=== PATIENT | female | born 1980 | race Two or more races ===

== ENCOUNTER 2016-09-17 18:37 | Inpatient (IN) | payer SELFPAY ==
--- NOTE | 2016-09-17 18:47 | ER Document Report ---
ED Medical Screen (RME) - General Stated Complaint: ABDOMINAL PAIN Mode of Arrival: Medic Information source: Patient Notes: Patient presents to the emergency department with nausea vomiting and abdominal pain for the past 4 hours. She was brought by EMS. Was given EMS. Denies fever or diarrhea. Patient still has her gallbladder. I have greeted and performed a rapid initial assessment of this patient. A comprehensive ED assessment and evaluation of the patient, analysis of test results and completion of the medical decision making process will be conducted by additional ED providers. TRAVEL OUTSIDE OF THE [place] IN LAST 30 DAYS: No - Related Data Allergies/Adverse Reactions: No Known Allergies Allergy (Unverified 12/06/14 18:50) Past Medical History Renal/ Medical History: Reports: Hx Ovarian Cysts GI Medical History: Reports: Hx Ulcer Psychiatric Medical History: Reports: Hx Depression Past Surgical History: Reports: Hx Abdominal Surgery - endoscopy - Immunizations Hx Diphtheria, Pertussis, Tetanus Vaccination: Yes
[2016-09-17] MEDS ORDERED: METOCLOPRAMIDE HCL INJ/PF 10 MG/2 ML SDV IV ONE (18:48)
[2016-09-17 19:46] LABS: ABSOLUTE BASOPHILS # (AUTO) 0.1 10^3/uL (0.0-0.2); ABSOLUTE MONOCYTES (AUTO) 0.8 10^3/uL (0.1-1.4); ABSOLUTE NEUT (AUTO) 16.3 10^3/uL (1.7-8.2); BASOPHILS % (AUTO) 0.3 % (0-2); HEMATOCRIT 38.1 % (36.0-47.0); HEMOGLOBIN 12.6 g/dL (12.0-15.5); HGB HCT DIFFERENCE -0.3; LYMPHOCYTES % (AUTO) 5.4 % (13-45); MEAN CORPUSCULAR HEMOGLOBIN 26.4 pg (27.0-33.4); MEAN CORPUSCULAR HGB CONC 33.1 g/dL (32.0-36.0); MEAN CORPUSCULAR VOLUME 80 fl (80-97); MONOCYTES % (AUTO) 4.7 % (3-13); RED BLOOD COUNT 4.78 10^6/uL (3.72-5.28); SEGMENTED NEUTROPHILS % (AUTO) 89.6 % (42-78); WHITE BLOOD COUNT 18.2 10^3/uL (4.0-10.5)
[2016-09-17 20:01] LABS: ALANINE AMINOTRANSFERASE 39 U/L (9-52); ALBUMIN 4.7 g/dL (3.5-5.0); ALKALINE PHOSPHATASE 85 U/L (38-126); ANION GAP 17 (5-19); ASPARTATE AMINO TRANSFERASE 25 U/L (14-36); BILIRUBIN,DIRECT 0.1 mg/dL (0.0-0.4); BILIRUBIN,TOTAL 0.6 mg/dL (0.2-1.3); BLOOD UREA NITROGEN 13 mg/dL (7-20); CALCIUM 10.3 mg/dL (8.4-10.2); CARBON DIOXIDE 18 mmol/L (22-30); CHLORIDE 106 mmol/L (98-107); CREATININE RESULT 0.62 mg/dL (0.52-1.25); GLUCOSE 122 mg/dL (75-110); LIPASE 91.5 U/L (23-300); POTASSIUM 3.9 mmol/L (3.6-5.0); TOTAL PROTEIN 7.8 g/dL (6.3-8.2)
[2016-09-17] MEDS ORDERED: ONDANSETRON HCL INJ/PF 4 MG/2 ML SDV IV ONE (20:56)
[2016-09-18 00:05] LABS: APPEARANCE,URINE SLIGHTLY-CLOUDY; BILIRUBIN,URINE NEGATIVE (NEGATIVE); GLUCOSE, URINE NEGATIVE (NEGATIVE); KETONES,URINE 80 mg/dL (NEGATIVE); LEUKOCYTE ESTERASE,URINE NEGATIVE (NEGATIVE); NITRITE,URINE NEGATIVE (NEGATIVE); PROTEIN,URINE 30 mg/dL (NEGATIVE); URINE SPECIFIC GRAVITY 1.016; UROBILINOGEN,URINE NEGATIVE mg/dL (<2.0)
[2016-09-18] MEDS ORDERED: PROMETHAZINE HCL INJ 25 MG/1 ML VIAL IM ONE (00:46)
[2016-09-18] MEDS ORDERED: MORPHINE SULFATE 10 MG/ML INJ IV ONE (00:46)
[2016-09-18] MEDS ORDERED: NORMAL SALINE 1000 ML 1,000 ML IV ONE ×2 (00:47→02:51)
--- NOTE | 2016-09-18 00:52 | ER Document Report ---
ED General - General Chief Complaint: Abdominal Pain Stated Complaint: ABDOMINAL PAIN Mode of Arrival: Medic Information source: Patient Notes: This is a 36-year-old female with a history of peptic ulcer disease who presents with a one-day history of diffuse abdominal pain and cramping, nausea vomiting and diarrhea. She states that her symptoms began about 10 this morning after eating a bowl of cereal. She felt significant diffuse abdominal cramps. She hasn't had diarrhea followed by nausea and vomiting. She has not been able to tolerate PO since then. She arrived via EMS and states that she feels better after Reglan and Zofran. She denies sick contacts and denies recent travel. TRAVEL OUTSIDE OF THE [place] IN LAST 30 DAYS: No - Related Data Allergies/Adverse Reactions: No Known Allergies Allergy (Unverified 12/06/14 18:50) Past Medical History - General Information source: Patient - Social History Smoking Status: Current Every Day Smoker Chew tobacco use (# tins/day): No Frequency of alcohol use: None Drug Abuse: None Family History: Reviewed & Not Pertinent Patient has suicidal ideation: No Patient has homicidal ideation: No - Past Medical History Cardiac Medical History: Reports: None Pulmonary Medical History: Reports: None Renal/ Medical History: Reports: Hx Ovarian Cysts. Denies: Hx Peritoneal Dialysis GI Medical History: Reports: Hx Ulcer Psychiatric Medical History: Reports: Hx Depression Past Surgical History: Reports: Hx Abdominal Surgery - endoscopy - Immunizations Hx Diphtheria, Pertussis, Tetanus Vaccination: Yes Review of Systems - Review of Systems Notes: REVIEW OF SYSTEMS: CONSTITUTIONAL : Denies fever, chills, or sweats. Denies recent illness. EENT: Denies eye, ear, throat, or mouth pain or symptoms. Denies nasal or sinus congestion. CARDIOVASCULAR: Denies chest pain. RESPIRATORY: Denies cough, cold, or chest congestion. Denies shortness of breath, difficulty breathing, or wheezing. GASTROINTESTINAL: As per history of present illness GENITOURINARY: Denies difficulty urinating, painful urination, burning, frequency, or blood in urine. FEMALE GENITOURINARY: Denies vaginal bleeding, abnormal or irregular periods. LMP: 09/05/16 MUSCULOSKELETAL: Denies neck or back pain or joint pain or swelling. SKIN: Denies rash or skin lesions. HEMATOLOGIC : Denies easy bruising or bleeding. LYMPHATIC: Denies swollen, enlarged glands. NEUROLOGICAL: Denies altered mental status or loss of consciousness. Denies headache. PSYCHIATRIC: Denies anxiety or stress or depression. ALL OTHER SYSTEMS REVIEWED AND NEGATIVE. Physical Exam - Vital signs Vitals: Temp 98.3 F 09/18/16 02:28 - Notes Notes: PHYSICAL EXAMINATION: GENERAL: Well-appearing, well-nourished and in no acute distress. Pleasant and conversant. HEAD: Atraumatic, normocephalic. EYES: Pupils equal round and reactive to light, extraocular movements intact, sclera anicteric, conjunctiva are normal. ENT: nares patent, oropharynx clear without exudates. Moist mucous membranes. NECK: Normal range of motion, supple without lymphadenopathy LUNGS: Breath sounds clear to auscultation bilaterally and equal. No wheezes rales or rhonchi. HEART: Regular rate and rhythm without murmurs ABDOMEN: Soft, diffuse mild tenderness to palpation, normoactive bowel sounds. No guarding, no rebound. No masses appreciated. EXTREMITIES: Normal range of motion, no pitting NEUROLOGICAL: Cranial nerves grossly intact. Normal speech. No gross focal motor or sensory deficits appreciated. PSYCH: Normal mood, normal affect. SKIN: Warm, Dry, normal turgor, no rashes or lesions noted. Course - Re-evaluation Re-evalutation: 09/18/16 02:39 Discussed with surgery on-call who will admit the patient for acute appendicitis - Vital Signs Vital signs: Temp Pulse Resp BP Pulse Ox 98.1 F 78 14 97/57 L 97 09/18/16 06:14 09/18/16 06:44 09/18/16 06:44 09/18/16 06:44 09/18/16 06:44 - Laboratory Result Diagrams: 09/17/16 19:25 09/17/16 19:25 Laboratory results interpreted by me: 09/17/16 09/17/16 09/17/16 19:25 19:25 19:28 WBC 18.2 H MCH 26.4 L Seg Neutrophils % 89.6 H Lymphocytes % 5.4 L Absolute Neutrophils 16.3 H Carbon Dioxide 18 L Glucose 122 H Calcium 10.3 H Urine Protein 30 H Urine Ketones 80 H - Diagnostic Test Radiology reviewed: Reports reviewed - early acute appendicitis Discharge - Discharge Clinical Impression: Acute appendicitis Qualifiers: Acute appendicitis type: unspecified acute appendicitis type Qualified Code(s) : K35.80 - Unspecified acute appendicitis Disposition: ADMITTED INPATIENT Admitting Provider: Surgicalist - Dr Bueno Unit Admitted: OR
[2016-09-18] MEDS ORDERED: PROMETHAZINE HCL INJ 25 MG/1 ML VIAL ONE (01:09)
[2016-09-18] MEDS ORDERED: PIPERACILLIN/TAZOBACTAM 3.375 GM VIAL IV ONE (02:48)
[2016-09-18] MEDS ORDERED: LORAZEPAM INJ 2 MG/1 ML VIAL IV ONE (03:46)
[2016-09-18] MEDS ORDERED: FENTANYL CITRATE INJ/PF 250 MCG/5 ML AMPULE ONE (04:33)
[2016-09-18] MEDS ORDERED: MIDAZOLAM 2 MG/2 ML INJ ONE (04:34)
[2016-09-18] MEDS ORDERED: EPHEDRINE SULFATE INJ 50 MG/1 ML AMPULE ONE (04:34)
[2016-09-18] MEDS ORDERED: ACETAMINOPHEN 100 ML IV ONE (04:34)
[2016-09-18] MEDS ORDERED: PROPOFOL INJ 200 MG/20 ML VIAL IV ONE (04:34)
[2016-09-18] MEDS ORDERED: DEXMEDETOMIDINE INJ 80 MCG/20 ML VIAL IV ONE (04:34)
[2016-09-18] MEDS ORDERED: LIDOCAINE 1% INJ-PF (10 MG/ML) 30 ML SDV ONE (04:48)
[2016-09-18] MEDS ORDERED: BUPIVACAINE HCL 0.25% /EPINEPHRINE INJ/PF 30 ML SDV ONE (04:49)
[2016-09-18] MEDS ORDERED: BUPIVACAINE HCL 0.5%-EPI 1:200000 INJ/PF 30 ML VIAL ONE (05:40)
[2016-09-18] MEDS ORDERED: PROMETHAZINE HCL INJ 25 MG/1 ML VIAL IV PRN ×2 (05:52)
[2016-09-18] MEDS ORDERED: DIPHENHYDRAMINE HCL 50 MG/ML VIAL IV PRN (05:52)
[2016-09-18] MEDS ORDERED: ONDANSETRON HCL INJ/PF 4 MG/2 ML SDV IV PRN (05:52)
[2016-09-18] MEDS ORDERED: MORPHINE SULFATE 10 MG/ML INJ IV PRN (05:52)
[2016-09-18] MEDS ORDERED: MEPERIDINE HCL/PF INJ 25 MG/1 ML DISP.SYRIN IV PRN (05:52)
[2016-09-18] MEDS ORDERED: FENTANYL CITRATE INJ/PF 100 MCG/2 ML AMPUL IV PRN ×3 (05:52)
[2016-09-18] MEDS: FENTANYL CITRATE INJ/PF 100 MCG/2 ML AMPUL ONE ×2 (06:26→06:31)
[2016-09-18] MEDS ORDERED: MORPHINE SULFATE 10 MG/ML INJ ONE (06:46)
--- NOTE | 2016-09-18 07:53 | OPERATIVE REPORT E ---
Operative Report NAME: DOLORES WILSON : 1980 AGE: 36Y DATE OF SURGERY: 09/18/2016 ROOM: ED13W PREOPERATIVE DIAGNOSIS: Acute appendicitis. POSTOPERATIVE DIAGNOSIS: Acute appendicitis. OPERATION: Laparoscopic appendectomy. SURGEON: SALUD GRANT M.D. MEDICARE COORDINATOR: None. ESTIMATED BLOOD LOSS: Negligible. COMPLICATIONS: None. ANESTHESIA: General plus 10 mL of 0.5% Marcaine with epinephrine. INDICATIONS AND FINDINGS: A 36-year-old female with a history of right upper quadrant pain, intense nausea and vomiting, with acute appendicitis found on CT scan. Her white count was elevated to 18,000 and the decision was made to take the patient to surgery today to undergo an emergent laparoscopic appendectomy, possible open procedure. The procedure risks, benefits, complications were explained to the patient. She understood all of the above and she decided to proceed. DESCRIPTION OF PROCEDURE: The patient was brought to the operating room. The patient was placed in the supine position. General anesthesia induced by endotracheal intubation. Abdomen was prepped and draped in the usual fashion. An incision was made just above the umbilicus. A 5 mm scope with Optiview adaptor and cannula were inserted through the umbilicus into the peritoneal cavity. The pneumoperitoneum was then obtained without difficulty and under direct visualization, a 5 mm port was inserted in the right upper quadrant of the abdomen. The 5 mm port through the umbilicus was removed and replaced by a 12 mm port. After this, 12 mm port was placed in the in the left lower quadrant of the abdomen. The patient was then placed in the Trendelenburg position with the right side exposed. The appendix was found to be in the right upper quadrant anterior, it was elevated and stretched. The mesoappendix was divided with LigaSure and stapled the base with endo-LAWRENCE. The appendix was extracted from the peritoneal cavity within an Endobag. The pneumoperitoneum was then re-established. The staple line was examined and found to be intact. Under direct visualization [id number] #0-Vicryl suture was placed to close the umbilical defect using fascial closure device. The sutures were left untied. All instruments were removed. The CO2 pneumoperitoneum was released. The ports were removed as well. The fascial defect at the umbilicus was closed with the previously placed [id number] #0-Vicryl suture. All skin incisions were closed with 4-0 Monocryl running subcuticular suture with Dermabond applied. The patient was then extubated and transferred to recovery room in satisfactory condition. PROCEDURE: @ DICTATING PHYSICIAN: SALUD GRANT M.D. [id number] PHY#: [id number] ID: [id number] JOB#: [id number] ACCT: [id number] cc:SALUD GRANT M.D. > [facility]
[2016-09-18] MEDS ORDERED: HYDROCODONE/ACETAMINOPHEN 5-325 MG TABLET PO PRN (08:12)
[2016-09-18] MEDS: MORPHINE SULFATE 10 MG/ML INJ IV PRN ×6 (09:33→20:44)
[2016-09-18] MEDS ORDERED: LIDOCAINE 2% INJ-PF (20 MG/ML) 10 ML AMPUL ONE (09:44)
[2016-09-18] MEDS ORDERED: ROCURONIUM BROMIDE INJ 50 MG/5 ML VIAL IV ONE (09:44)
[2016-09-18] MEDS ORDERED: METOCLOPRAMIDE HCL INJ/PF 10 MG/2 ML SDV ONE (09:44)
[2016-09-18] MEDS ORDERED: GLYCOPYRROLATE INJ 0.4 MG/2 ML VIAL ONE (09:44)
[2016-09-18] MEDS ORDERED: ONDANSETRON HCL INJ/PF 4 MG/2 ML SDV ONE (09:44)
[2016-09-18] MEDS ORDERED: DEXAMETHASONE SOD PHOSPHATE INJ 4 MG/1 ML VIAL ONE (09:44)
[2016-09-18] MEDS ORDERED: KETOROLAC TROMETHAMINE 60 MG/2 ML SDV ONE (09:44)
[2016-09-18] MEDS ORDERED: NEOSTIGMINE METHYLSULFATE 10 MG/10 ML VIAL ONE (09:44)
[2016-09-18] MEDS ORDERED: SUCCINYLCHOLINE CHLORIDE INJ 200 MG/10 ML VIAL ONE (09:44)
[2016-09-18] MEDS: PIPERACILLIN SODIUM/TAZOBACTAM 3.375 GM in NORMAL SALINE 100 ML IV SCH ×3 (10:33→20:44)
[2016-09-18] MEDS: NORMAL SALINE 1000 ML 1,000 ML IV PRN ×2 (10:33→20:44)
--- NOTE | 2016-09-18 13:22 | HISTORY AND PHYSICAL E ---
History and Physical NAME: DOLORES WILSON : 1980 AGE: 36Y ADMITTED: 09/18/2016 ROOM: 421 CHIEF COMPLAINT: Right lower quadrant pain. HISTORY: This is a healthy 36-year-old white female with a history of right lower quadrant pain, intense nausea, seen in the emergency room tonight and a CAT scan of the abdomen was done revealing the presence of acute appendicitis. The patient denies hematemesis, fever, chills, or hematochezia, or change in bowel habits. PAST MEDICAL HISTORY: Significant for: 1. Depression. 2. 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 ALLERGIES: None. MEDICATIONS: Fluoxetine. SOCIAL HISTORY: The patient denies abuse of tobacco and drugs, admits to occasional use of alcohol. FAMILY HISTORY: Significant for diabetes and hypertension. REVIEW OF SYSTEMS: Twelve-point review of systems significant for history of gastric ulcers and depression. REVIEW OF LABORATORIES: Urinalysis is negative except for the presence of ketone. Lytes, BUN and creatinine normal. LFT's normal. White blood cell count 18, H and H 12 and 38, platelet count 296. Lipase is normal. Beta HCG the serum is negative. CT scan abdomen and pelvis significant for early acute appendicitis without evidence of perforation. PHYSICAL EXAMINATION: VITAL SIGNS: Stable. Patient afebrile. Temperature 98.3. Remaining vital signs within normal limits. HEENT: Second through twelve cranial nerves are normal. NECK: Supple without masses. CHEST: Symmetric bilaterally. LUNGS: Clear to auscultation bilaterally. HEART: Regular rhythm and rate. ABDOMEN: Flat, soft, nondistended. Tender in the right lower quadrant. EXTREMITIES: Upper and lower extremities are equal and symmetric bilaterally without deficit. NEUROLOGICAL: Equal and symmetric bilaterally without deficit. SKIN: Warm, dry, intact without lesions. ASSESSMENT: 1. Right lower quadrant pain. 2. Leukocytosis. 3. CT scan is significant for acute appendicitis. PLAN: 1. Aggressive IV hydration 2 L normal saline followed by normal saline 150 an hour. 2. Administration of IV antibiotics, Zosyn 3.375 g IV piggyback preop. 3. Patient scheduled to undergo laparoscopic appendectomy possibly open. Procedure benefits and complications explained to the patient. She understands all of them and decides to proceed. 4. Keep the patient n.p.o. DICTATING PHYSICIAN: SALUD GRANT M.D. [id number] PHY#: [id number] ID: [id number] JOB#: [id number] ACCT: [id number] cc:SALUD GRANT M.D. > [facility]
[2016-09-18] MEDS: ONDANSETRON HCL INJ/PF 4 MG/2 ML SDV IV PRN (19:06)
[2016-09-18] MEDS: SIMETHICONE 80 MG TAB.CHEW PO PRN (19:06)
[2016-09-18] MEDS ORDERED: ENOXAPARIN SODIUM INJ 40 MG/0.4 ML DISP.SYRIN SUBCUT SCH (20:00)
[2016-09-19] MEDS: MORPHINE SULFATE 10 MG/ML INJ IV PRN ×3 (00:09→08:15)
[2016-09-19] MEDS: SIMETHICONE 80 MG TAB.CHEW PO PRN ×3 (01:30→16:17)
[2016-09-19] MEDS: ONDANSETRON HCL INJ/PF 4 MG/2 ML SDV IV PRN (01:31)
[2016-09-19] MEDS: PIPERACILLIN SODIUM/TAZOBACTAM 3.375 GM in NORMAL SALINE 100 ML IV SCH ×2 (03:27→08:14)
[2016-09-19 07:17] LABS: HEMATOCRIT 30.2 % (36.0-47.0); HGB HCT DIFFERENCE -0.2; MEAN CORPUSCULAR HEMOGLOBIN 26.7 pg (27.0-33.4); MEAN CORPUSCULAR HGB CONC 32.9 g/dL (32.0-36.0); MEAN CORPUSCULAR VOLUME 81 fl (80-97); RED BLOOD COUNT 3.72 10^6/uL (3.72-5.28); RED CELL DISTRIBUTION WIDTH 14.5 % (11.5-14.0); WHITE BLOOD COUNT 10.2 10^3/uL (4.0-10.5)
[2016-09-19 07:39] LABS: ANION GAP 10 (5-19); BLOOD UREA NITROGEN 10 mg/dL (7-20); CALCIUM 8.5 mg/dL (8.4-10.2); CARBON DIOXIDE 21 mmol/L (22-30); CHLORIDE 111 mmol/L (98-107); CREATININE RESULT 0.59 mg/dL (0.52-1.25); GLUCOSE 92 mg/dL (75-110); POTASSIUM 3.6 mmol/L (3.6-5.0); SODIUM 141.5 mmol/L (137-145)
[2016-09-19] MEDS ORDERED: TRAMADOL HCL 50 MG TABLET PO PRN (10:19)
[2016-09-19] MEDS ORDERED: KETOROLAC TROMETHAMINE INJ/PF 30 MG/1 ML SDV IM PRN (10:19)
--- NOTE | 2016-09-19 17:48 | PROGRESS NOTE E ---
Progress Note NAME: DOLORES WILSON : 1980 AGE: 36Y DATE: 09/19/2016 ROOM: 421 SUBJECTIVE: The patient has no complaints. Denies abdominal pain, nausea, vomiting. Tolerating p.o. well. OBJECTIVE: VITAL SIGNS: Stable. Temperature 98.4. Pulse 72. Blood pressure 105/62. Respirations 16. LUNGS: Clear bilaterally. HEART: Regular. ABDOMEN: Soft. Incision is clean, dry, and intact. REVIEW OF LABORATORIES: CBC, electrolytes, BUN and creatinine all within normal limits. ASSESSMENT: 1. LAPAROSCOPIC APPENDECTOMY FOR ACUTE APPENDICITIS. 2. PATIENT HEMODYNAMICALLY STABLE, AFEBRILE. 3. PATIENT TOLERATING ORAL WELL. 4. CBC WITHIN NORMAL LIMITS WITH NORMAL WHITE BLOOD CELL COUNT. 5. PHYSICAL EXAMINATION UNREMARKABLE. PLAN: 1. Discharge home today. 2. Augmentin 875 mg p.o. b.i.d. for 5 days. 3. Tylenol for pain with Aleve p.r.n. as needed. 4. Follow up in Surgery Clinic within a week. DICTATING PHYSICIAN: SALUD GRANT M.D. [id number] PHY#: [id number] ID: [id number] JOB#: [id number] ACCT: [id number] cc: >
--- NOTE | 2016-09-19 17:53 | DISCHARGE SUMMARY E ---
Discharge Summary NAME: DOLORES WILSON : 1980 AGE: 36Y ADMITTED: 09/18/2016 DISCHARGED: 09/19/2016 FINAL DIAGNOSIS: Acute appendicitis. COMPLICATIONS: None. PROCEDURE: Laparoscopic appendectomy 09/18/2016. HOSPITAL COURSE: This is a healthy 36-year-old female who came to the Emergency Room 09/18/2016 complaining of abdominal pain in the right lower quadrant and found to have acute appendicitis. The patient was taken to surgery on the same day for laparoscopic appendectomy. The procedure was uneventful. The patient was admitted to the floor. Postoperative course was uneventful. On the day of discharge, the patient had no complaints. Vital signs were stable. Physical exam was unremarkable. Abdomen was soft. Incision was clean, dry, and intact. Her blood work showed a normal white blood cell count and normal electrolytes, BUN and creatinine. The patient was discharged to home on 09/19/2016. She was given a follow-up appointment in the Surgery Clinic within a week. She was instructed to take Tylenol 325 p.o. q.6 p.r.n. for pain and Aleve 220 mg p.o. b.i.d. p.r.n. for pain. She was instructed to take Colace or MiraLax [id number] for constipation. She was given Augmentin 875 mg p.o. b.i.d. for 5 days. Instructed to shower only. Activity as tolerated and regular diet. DICTATING PHYSICIAN: SALUD GRANT M.D. [id number] PHY#: [id number] ID: [id number] JOB#: [id number] ACCT: [id number] cc:SALUD GRANT M.D. > [facility]
[2016-09-19 17:55] VITALS: BP 108/62
== END 2016-09-19 18:14 | disposition home or self-care (01) | DRG 343 ==
LOC: ER 18:37 → EH 09-18 03:01 → UNDOADMIN 09-18 03:01 → 4W 09-18 07:15 → EH 09-18 07:15 → 4W 09-18 09:06
PROVIDERS: ADMIT Surgery; ATTEND Surgery
PROC: 0DTJ4ZZ Resection of Appendix, Percutaneous Endoscopic Approach (ICD-10-PCS; principal; 2016-09-18 05:00)
DX: K35.80 Unspecified acute appendicitis (principal); F32.9 Major depressive disorder, single episode, unspecified; F17.200 Nicotine dependence, unspecified, uncomplicated; Z87.11 Personal history of peptic ulcer disease; Z83.3 Family history of diabetes mellitus; Z82.49 Family history of ischemic heart disease and other diseases of the circulatory system
CPT/HCPCS: 36415; 74177; 80048; 80053; 81001; 83690; 840; 84703; 85025; 85027; 88304; 96361; 96374; 96375; 99285; J0131; J0330; J1100; J1650; J1885; J2250; J2270; J2405; J2543; J2704; J2765; J3010; J3490; J7030

== ENCOUNTER 2016-10-12 02:02 | Emergency (ER) | payer SELFPAY ==
[2016-10-12 06:43] LABS: ABSOLUTE BASOPHILS # (AUTO) 0.1 10^3/uL (0.0-0.2); ABSOLUTE EOSINOPHILS # (AUTO) 0.1 10^3/uL (0.0-0.6); ABSOLUTE LYMPHOCYTES (AUTO) 2.4 10^3/uL (0.5-4.7); ABSOLUTE MONOCYTES (AUTO) 0.8 10^3/uL (0.1-1.4); ABSOLUTE NEUT (AUTO) 5.3 10^3/uL (1.7-8.2); BASOPHILS % (AUTO) 0.8 % (0-2); EOSINOPHILS % (AUTO) 1.6 % (0-6); HEMATOCRIT 37.6 % (36.0-47.0); HEMOGLOBIN 12.6 g/dL (12.0-15.5); HGB HCT DIFFERENCE 0.2; LYMPHOCYTES % (AUTO) 27.4 % (13-45); MEAN CORPUSCULAR HEMOGLOBIN 26.9 pg (27.0-33.4); MEAN CORPUSCULAR HGB CONC 33.4 g/dL (32.0-36.0); MEAN CORPUSCULAR VOLUME 81 fl (80-97); MONOCYTES % (AUTO) 9.1 % (3-13); RED BLOOD COUNT 4.67 10^6/uL (3.72-5.28); SEGMENTED NEUTROPHILS % (AUTO) 61.1 % (42-78); WHITE BLOOD COUNT 8.7 10^3/uL (4.0-10.5)
[2016-10-12] MEDS ORDERED: LORAZEPAM INJ 2 MG/1 ML VIAL IV ONE (06:50)
[2016-10-12 06:53] LABS: ALANINE AMINOTRANSFERASE 40 U/L (9-52); ALBUMIN 4.6 g/dL (3.5-5.0); ALKALINE PHOSPHATASE 72 U/L (38-126); ANION GAP 13 (5-19); ASPARTATE AMINO TRANSFERASE 27 U/L (14-36); BILIRUBIN,TOTAL 0.3 mg/dL (0.2-1.3); BLOOD UREA NITROGEN 17 mg/dL (7-20); CALCIUM 9.9 mg/dL (8.4-10.2); CARBON DIOXIDE 27 mmol/L (22-30); CHLORIDE 104 mmol/L (98-107); CREATININE RESULT 0.75 mg/dL (0.52-1.25); GLUCOSE 93 mg/dL (75-110); POTASSIUM 4.1 mmol/L (3.6-5.0); SODIUM 143.6 mmol/L (137-145)
[2016-10-12] MEDS ORDERED: HYDROMORPHONE HCL INJ/PF 2 MG/ML AMPULE ONE (06:55)
--- NOTE | 2016-10-12 07:03 | ER Document Report ---
ED General - General Chief Complaint: Chest Pain Stated Complaint: CHEST PAIN,BREATHING CONCERNS Mode of Arrival: Ambulatory Information source: Patient Notes: 36-year-old female history of anxiety presents with complaints of sharp chest pain. Patient notes that she has been having this pain on and off for a few weeks, patient did have appendectomy performed on September 17 notes the symptoms preceded the surgery. Patient denies any fevers or chills denies any productive cough TRAVEL OUTSIDE OF THE [place] IN LAST 30 DAYS: No - HPI Onset: Last week Onset/Duration: Intermittent Quality of pain: Sharp Severity: Mild Pain Level: 1 Associated symptoms: Chest pain, Shortness of breath Exacerbated by: Denies Relieved by: Denies Similar symptoms previously: Yes Recently seen / treated by doctor: No - Related Data Allergies/Adverse Reactions: No Known Allergies Allergy (Unverified 12/06/14 18:50) Past Medical History - Social History Smoking Status: Never Smoker Cigarette use (# per day): No Chew tobacco use (# tins/day): No Smoking Education Provided: No Family History: Reviewed & Not Pertinent Renal/ Medical History: Reports: Hx Ovarian Cysts. Denies: Hx Peritoneal Dialysis GI Medical History: Reports: Hx Ulcer Psychiatric Medical History: Reports: Hx Depression Past Surgical History: Reports: Hx Abdominal Surgery - endoscopy - Immunizations Hx Diphtheria, Pertussis, Tetanus Vaccination: Yes Review of Systems - Review of Systems Notes: REVIEW OF SYSTEMS: CONSTITUTIONAL : Denies fever, chills, or sweats. Denies recent illness. EENT: Denies eye, ear, throat, or mouth pain or symptoms. Denies nasal or sinus congestion or discharge. Denies throat, tongue, or mouth swelling or difficulty swallowing. CARDIOVASCULAR: Admits chest pain RESPIRATORY: Admits shortness of breath GASTROINTESTINAL: Denies abdominal pain or distention. Denies nausea, vomiting , or diarrhea. Denies blood in vomitus, stools, or per rectum. Denies black, tarry stools. Denies constipation. GENITOURINARY: Denies difficulty urinating, painful urination, burning, frequency, blood in urine, or discharge. FEMALE GENITOURINARY: Denies vaginal bleeding, heavy or abnormal periods, irregular periods. Denies vaginal discharge or odor. MUSCULOSKELETAL: Denies back or neck pain or stiffness. Denies joint pain or swelling. SKIN: Denies rash, lesions or sores. HEMATOLOGIC : Denies easy bruising or bleeding. LYMPHATIC: Denies swollen, enlarged glands. NEUROLOGICAL: Denies confusion or altered mental status. Denies passing out or loss of consciousness. Denies dizziness or lightheadedness. Denies headache. Denies weakness or paralysis or loss of use of either side. Denies problems with gait or speech. Denies sensory loss, numbness, or tingling. Denies seizures. PSYCHIATRIC: Admits to anxiety ALL OTHER SYSTEMS REVIEWED AND NEGATIVE. Dictation was performed using [employer] voice recognition software PHYSICAL EXAMINATION: GENERAL: Well-appearing, well-nourished and in no acute distress. HEAD: Atraumatic, normocephalic. EYES: Pupils equal round and reactive to light, extraocular movements intact, conjunctiva are normal. ENT: Nares patent, oropharynx clear without exudates. Moist mucous membranes. NECK: Normal range of motion, supple without lymphadenopathy LUNGS: Breath sounds clear to auscultation bilaterally and equal. No wheezes rales or rhonchi. HEART: Mildly tachycardic ABDOMEN: Soft, nontender, nondistended abdomen. No guarding, no rebound. No masses appreciated. Female : deferred Musculoskeletal: Normal range of motion, no pitting or edema. No cyanosis. NEUROLOGICAL: Cranial nerves grossly intact. Normal speech, normal gait. Normal sensory, motor exams PSYCH: Normal mood, normal affect. SKIN: Warm, Dry, normal turgor, no rashes or lesions noted. Physical Exam - Vital signs Vitals: Temp Pulse Resp BP Pulse Ox 98.3 F 105 H 18 136/94 H 99 10/12/16 02:39 10/12/16 02:39 10/12/16 02:39 10/12/16 02:39 10/12/16 02:39 Course - Re-evaluation Re-evalutation: 10/12/16 07:03 Patient emergently sent for CTA to rule out a pulmonary emboli otherwise I believe it is anxiety related 10/12/16 07:41 pt given ativan, symptoms have since resolved, pt noted on cta to have enhancing lesions of liver. - Vital Signs Vital signs: Temp Pulse Resp BP Pulse Ox 98.3 F 105 H 18 136/94 H 99 10/12/16 02:39 10/12/16 02:39 10/12/16 02:39 10/12/16 02:39 10/12/16 02:39 - Laboratory Result Diagrams: 10/12/16 06:20 10/12/16 06:20 Laboratory results interpreted by me: 10/12/16 06:20 MCH 26.9 L
--- NOTE | 2016-10-12 07:37 | EKG REPORT ---
SEVERITY:- ABNORMAL ECG - SINUS RHYTHM ARVIN, CONSIDER BIATRIAL ABNORMALITIES LVH WITH SECONDARY REPOLARIZATION ABNORMALITY : Confirmed by: Shahla Medina MD 12-Oct-2016 07:36:40
[2016-10-12 09:41] VITALS: BP 123/82
== END 2016-10-12 09:41 | disposition home or self-care (01) ==
LOC: ER 02:02
DX: F41.9 Anxiety disorder, unspecified (principal); R07.9 Chest pain, unspecified; R06.02 Shortness of breath; R00.0 Tachycardia, unspecified; Z90.49 Acquired absence of other specified parts of digestive tract; K76.9 Liver disease, unspecified
CPT/HCPCS: 93005; 99285; 96374; 36415; 85025; 80053; 76705; 71275; 93010; J2060